=== PATIENT | male | born 1965 | race African-American/Black ===

== ENCOUNTER 2017-12-11 12:44 | Emergency (ER) | payer SELFPAY ==
[~2017-12-11] VITALS: Ht 190.5 cm; Wt 115.7 kg
[2017-12-11 12:52] VITALS: BP 152/80
[2017-12-11] MEDS ORDERED: ACETAMINOPHEN/CODEINE#3 (300/30mg) TAB PO ONE (14:00)
== END 2017-12-11 14:17 | disposition home or self-care (01) ==
LOC: ER 12:44
DX: S62.345A Nondisplaced fracture of base of fourth metacarpal bone, left hand, initial encounter for closed fracture (principal); E11.9 Type 2 diabetes mellitus without complications; W01.0XXA Fall on same level from slipping, tripping and stumbling without subsequent striking against object, initial encounter; Y93.89 Activity, other specified; Y99.8 Other external cause status; Y92.89 Other specified places as the place of occurrence of the external cause
CPT/HCPCS: 73630